=== PATIENT | female | born 1985 | race African-American/Black ===

== ENCOUNTER 2017-10-16 12:42 | Emergency (ER) | payer BC ==
[~2017-10-16] VITALS: Ht 177.8 cm; Wt 102.6 kg
[2017-10-16 12:55] VITALS: BP 134/78
--- NOTE | 2017-10-16 12:58 | NUR ---
PT AMBULATED TO BED 1
--- NOTE | 2017-10-16 13:00 | NUR ---
31 YO F BIB FAMILY W/ C/O THROAT DISCOMFORT. PT REPORTS THAT SHE WAS EATING SALMON LAST NIGHT AND HAS A FISHBONE "APROX 1.5 INCH" STUCK IN HER THROAT.DENIES N/V/D; SKIN IS PINK/WARM/DRY; AAOX4 WITH EVEN AND STEADY GAIT; LUNGS CLEAR BL; HR EVEN AND REGULAR; PT DENIES ANY FEVER, CP, SOB, OR COUGH AT THIS TIME; PATIENT STATES DISCOMFORT OF 2/10 AT THIS TIME; VSS; PATIENT POSITIONED FOR COMFORT; HOB ELEVATED; BEDRAILS UP X2; BED DOWN. ER MD MADE AWARE OF PT STATUS.
[2017-10-16] MEDS ORDERED: BENZOCAINE 20% 57 GM CAN MC ONE (13:30)
--- NOTE | 2017-10-16 13:58 | NUR ---
ER MD Kendall removed fish bone from pt throat. Pt tolerated well.
[2017-10-16 14:15] VITALS: BP 134/78
--- NOTE | 2017-10-16 14:15 | NUR ---
Patient discharged with v/s stable. Written and verbal after care instructions given and explained. Patient verbalized understanding. Ambulatory with steady gait. All questions addressed prior to discharge. Advised to follow up with PMD.
== END 2017-10-16 14:15 | disposition home or self-care (01) ==
LOC: MED 12:42
DX: T17.228A Food in pharynx causing other injury, initial encounter (principal); X58.XXXA Exposure to other specified factors, initial encounter; Y93.89 Activity, other specified; Y92.89 Other specified places as the place of occurrence of the external cause; Y99.8 Other external cause status
CPT/HCPCS: 99284